=== PATIENT | male | born 1985 | race Caucasian/White ===

== ENCOUNTER 2016-10-14 18:29 | Emergency (ER) | payer SELFPAY ==
[~2016-10-14] VITALS: Ht 177.8 cm; Wt 88.5 kg
[2016-10-14 19:08] VITALS: BP_SYST 162
--- NOTE | 2016-10-14 19:35 | NUR ---
Note stacie in EDM - 10/14/16 at 1952 by GIACOMO Pt stated around 1800, pt had dropped a box on his L foot. Pt states he has limited ROM and he cant feel his Big toe. Cap refill less than 2 sec. Pt has good sensory in the rest of the foot. Pain level 3/10. Will continue to monitor. No other injuries or complaints mentioned/noted. No distress noted.
--- NOTE | 2016-10-14 19:45 | NUR ---
Patient to ER bed 4 to gown for evaluation. Side rails up. Report given to [employer].
--- NOTE | 2016-10-14 19:45 | NUR ---
Pt stated around 1800, pt had dropped a box on his L foot. Pt states he has limited ROM and he cant feel his Big toe. Cap refill less than 2 sec. Pt has good sensory in the rest of the foot. Pain level 3/10. Will continue to monitor. No other injuries or complaints mentioned/noted. No distress noted.
--- NOTE | 2016-10-14 19:50 | NUR ---
ER Dr. Peterson at bedside examining patient.
[2016-10-14 20:15] VITALS: BP_SYST 162
--- NOTE | 2016-10-14 20:15 | NUR ---
Patient given written and verbal discharge instructions and verbalizes understanding. ER MD discussed with patient the results and treatment provided. Patient in stable condition. ID arm band removed. Rx of Motrin given. Patient educated on pain management and to follow up with PMD. Pain Scale 0/10. Opportunity for questions provided and answered.
== END 2016-10-14 20:15 | disposition home or self-care (01) ==
LOC: SED 18:29
DX: S92.312A Displaced fracture of first metatarsal bone, left foot, initial encounter for closed fracture (principal); W22.8XXA Striking against or struck by other objects, initial encounter; Y93.89 Activity, other specified; Y99.8 Other external cause status; Y92.89 Other specified places as the place of occurrence of the external cause
CPT/HCPCS: 99284

== ENCOUNTER 2018-02-17 16:47 | Emergency (ER) | payer BC ==
[~2018-02-17] VITALS: Ht 177.8 cm; Wt 90.7 kg
[2018-02-17 17:05] VITALS: BP_SYST 158
[2018-02-17] MEDS ORDERED: HYDROcodone/ACETAMIN 5-325 MG TAB (NORCO/ VICODIN) PO ONE (17:15)
[2018-02-17] MEDS ORDERED: DIPH-TET-PERTUS Vaccine 0.5 ML VIAL (ADACEL) I.M. ONE (17:45)
[2018-02-17] MEDS ORDERED: LIDOCAINE 2%, 20 ML MDV INJ ONE (17:45)
[2018-02-17] MEDS ORDERED: ceFAZolin SODIUM 1 GM VIAL IM ONE (17:45)
[2018-02-17 19:13] VITALS: BP_SYST 140
[2018-02-17] MEDS ORDERED: BACITRACIN 1 GM OINT TP ONE (19:15)
== END 2018-02-17 17:31 | disposition home or self-care (01) ==
LOC: SED 16:47
DX: S92.424A Nondisplaced fracture of distal phalanx of right great toe, initial encounter for closed fracture (principal); S91.211A Laceration without foreign body of right great toe with damage to nail, initial encounter; R03.0 Elevated blood-pressure reading, without diagnosis of hypertension; W20.8XXA Other cause of strike by thrown, projected or falling object, initial encounter; Y93.89 Activity, other specified; Y92.69 Other specified industrial and construction area as the place of occurrence of the external cause; Y99.8 Other external cause status
CPT/HCPCS: 12001; 73630; 90471; 90715; 96372; 99284; J0690; J2001